=== PATIENT | male | born 1990 | race Caucasian/White ===

== ENCOUNTER → 2023-01-29 | Outpatient (CLI) | payer SELFPAY ==
--- NOTE | 2023-01-29 17:40 | CT_ITS ---
STUDY: CT MAXILLOFACIAL SINUSES REASON FOR EXAM: Male, 32 years old. SINUSITIS RADIATION DOSAGE (If Supplied By Facility): CTDIvol = ( 33.06 ) mGy, DLP = ( 879.30 ) mGycm TECHNIQUE: The patient was scanned in a multi detector CT scanner. High resolution axial imaging was performed without the administration of intravenous contrast material. Sagittal and coronal images were reconstructed. Individualized dose optimization techniques were used for this CT. COMPARISON: None. FINDINGS: FRONTAL SINUSES: Normal aeration, without mucosal inflammatory disease. ETHMOIDAL SINUSES: Mucosal thickening in the ethmoid air cells consistent with chronic sinusitis. MAXILLARY SINUSES: Mucous retention cyst in the floor the right mid x-ray sinus consistent with chronic sinusitis. SPHENOIDAL SINUSES: Mucosal thickening in the sphenoid sinuses consistent with chronic sinusitis. There is patency of the bilateral maxillary infundibuli with normal uncinate processes, ethmoid bullae, and hiatus semilunaris. There are bharat bullosa of the bilateral turbinates. Normal bilateral inferior turbinates. Normal midline nasal septum. There is patency of the bilateral nasal airways. The visualized osseous structures are normal. The visualized bilateral orbital contents are normal. CT/Sinus/Facial Bone IMPRESSION: 1. Chronic sinusitis. 2. Patent ostiomeatal units bilaterally. 3. 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 Electronically Signed: Brian Waggoner MD at 23:51 EST ,
== END | disposition home or self-care (01) ==
PROVIDERS: Visit Provider Otolaryngology
DX: J32.8 Other chronic sinusitis (principal)
CPT/HCPCS: 70486